=== PATIENT | male | born 1955 | race Caucasian/White ===

== ENCOUNTER 2016-10-29 09:47 | Observation (INO) | payer OTHER ==
[~2016-10-29] VITALS: Ht 170.2 cm; Wt 94.7 kg
[~2016-10-29 09:47] MED LIST: AMLODIPINE-BEN1 EAC3 PO; CHLORZOXAZONE500 MG PO; HYDROCODON-ACE1 EACH PO; OMEPRAZOLE40 M1 PO; PERCOCET 5/31 TABLET PO
[2016-10-29 10:54] LABS: HEMATOCRIT 42.4 % (38.0-50.0); MCH 30.5 PG (29.0-34.0); MCHC 33.7 G/DL (30.0-36.0); MCV 90.4 FL (86-99); MEAN PLAT.VOLUME 10.6 uM^3 (9.0-12.4); PLATELET COUNT 218 K/uL (156-360); RBC DIS.WIDTH-CV 12.3 % (11.8-14.6); RBC DIS.WIDTH-SD 40.7 % (39-53); RED BLOOD COUNT 4.69 M/uL (4.00-5.50); WHITE BLOOD COUNT 4.4 K/uL (4.1-10.2)
[2016-10-29 11:04] LABS: INTER. NORMALIZED RATIO 1.1; PROTHROMBIN TIME 10.9 (9.2-11.2); PTT 32.3 (25-32)
[2016-10-29 11:09] LABS: CHLORIDE 108 mEq/L (99-109)
[2016-10-29 11:10] LABS: POTASSIUM 4.1 mEq/L (3.7-5.4); SODIUM 139 mEq/L (136-147)
[2016-10-29 11:11] LABS: GLUCOSE 103 mg/dL (70-99)
[2016-10-29 11:13] LABS: ANION GAP 10 MEQ/L (2-14)
[2016-10-29 11:15] LABS: GFR ESTIMATE (CALCULATED) > 59 mL/min/
[2016-10-29 11:16] LABS: UREA NITROGEN (BUN) 22 mg/dL (9-23)
[2016-10-29 11:25] LABS: TROP-I INTERPRETATION NEGATIVE; TROPONIN-I < 0.01 ng/mL (0.0-0.30)
[2016-10-29] MEDS ORDERED: HYDROCODON-ACE1 EAC7 PO (13:24)
[2016-10-29 15:39] VITALS: BP 127/79
[2016-10-29 19:15] LABS: TROP-I INTERPRETATION NEGATIVE; TROPONIN-I < 0.01 ng/mL (0.0-0.30)
[2016-10-29 19:30] VITALS: BP 122/68
[2016-10-29 22:54] LABS: TROP-I INTERPRETATION NEGATIVE; TROPONIN-I 0.02 ng/mL (0.0-0.30)
[2016-10-30 00:26] VITALS: BP 107/57
[2016-10-30 01:02] LABS: TROP-I INTERPRETATION NEGATIVE; TROPONIN-I < 0.01 ng/mL (0.0-0.30)
[2016-10-30 04:56] VITALS: BP 128/67
[2016-10-30 11:29] VITALS: BP 112/71
[2016-10-30] MEDS ORDERED: MOTRIN600 MG PO (14:13)
== END 2016-10-30 14:47 | disposition home or self-care (01) ==
LOC: EME 09:47 → EDOF 13:16 → 5WEST 13:16 → EDOF 13:16 → 5WEST 15:20
PROVIDERS: Internal Medicine; Physician Assistant Medical
DX: R07.89 Other chest pain (principal); I10 Essential (primary) hypertension
CPT/HCPCS: 71020; 71275; 80048; 84484; 85027; 85610; 85730; 93005; G0378; J1650; J7030